=== PATIENT | male | born 1990 ===

== ENCOUNTER 2020-09-26 01:01 | Emergency (ER) | payer BC, OTHER ==
--- NOTE | 2020-09-26 01:38 | EDM.PDOC ---
ED HPI GENERAL MEDICAL PROBLEM - General Chief Complaint: Upper Extremity Injury/Pain Stated Complaint: left thumb pain/numbness post injury Time Seen by Provider: 09/26/20 01:13 Source of Information: Reports: Patient History Limitations: Reports: No Limitations - History of Present Illness INITIAL COMMENTS - FREE TEXT/NARRATIVE: Pt injured left thumb at work last week Was seen at [facility] and told it was fractured Was back at work tonight and has increased pain and wanted seen Is not an acute or emergent situation Was not wearing splint Duration: Day(s):, Getting Worse Location: Reports: Upper Extremity, Left Quality: Reports: Throbbing Severity: Moderate Context: Reports: Trauma left thumb/arm Pain Score (Numeric/FACES): 10 - Related Data Allergies Allergy/AdvReac Type Severity Reaction Status Date / Time No Known Allergies Allergy Verified 09/26/20 01:03 Home Meds: Home Meds . [No Known Home Meds] 09/26/20 [History] Review of Systems - Review of Systems Review Of Systems: See Below Musculoskeletal: Reports: Other (Left thumb pain and swelling) ED EXAM, GENERAL - Physical Exam Exam: See Below Exam Limited By: No Limitations General Appearance: Alert, WD/WN, Mild Distress Extremities: Joint Swelling, Limited Range of Motion, Other (Left thumb with increased swelling and ecchymosis Hematoma under nail Limited ROM due to pain and swelling Neurovascular intact) Course - Vital Signs Last Recorded V/S: Last Vital Signs Temp 98.3 F 09/26/20 01:04 Pulse 53 L 09/26/20 01:04 Resp 16 09/26/20 01:04 BP 136/71 09/26/20 01:04 Pulse Ox 99 09/26/20 01:04 - Orders/Labs/Meds Orders: Active Orders 24 hr Category Date Time Status Fingers Thumb Lt FA [CR] Stat Exams 09/26/20 01:18 Ordered - Re-Assessments/Exams Free Text/Narrative Re-Assessment/Exam: 09/26/20 01:38 Xray: Fracture of distal phalanges Splint placed per nursing Departure - Departure Time of Disposition: 01:45 Disposition: Home, Self-Care 01 Clinical Impression: Thumb fracture Qualifiers: Encounter type: initial encounter Fracture type: closed Phalanx: distal Fracture alignment: nondisplaced Laterality: left Qualified Code(s): S62.525A - Nondisplaced fracture of distal phalanx of left thumb, initial encounter for closed fracture - Discharge Information *PRESCRIPTION DRUG MONITORING PROGRAM REVIEWED*: Not Applicable *COPY OF PRESCRIPTION DRUG MONITORING REPORT IN PATIENT GIANNA: Not Applicable Instructions: Thumb Fracture Additional Instructions: Follow up in clinic Wear splint Rx Tylenol #3 One pill every 6 hours for pain Sepsis Event Note (ED) - Evaluation Sepsis Screening Result: No Definite Risk - Focused Exam Vital Signs: Vital Signs Temp Pulse Resp BP Pulse Ox 09/26/20 01:04 98.3 F 53 L 16 136/71 99 - My Orders Last 24 Hours: My Active Orders 09/26/20 01:18 Fingers Thumb Lt FA [CR] Stat - Assessment/Plan Last 24 Hours: My Active Orders 09/26/20 01:18 Fingers Thumb Lt FA [CR] Stat
== END 2020-09-26 02:20 | disposition home or self-care (01) ==
LOC: LL.ED 01:01
DX: S62.525A Nondisplaced fracture of distal phalanx of left thumb, initial encounter for closed fracture (principal); X58.XXXA Exposure to other specified factors, initial encounter; Y92.89 Other specified places as the place of occurrence of the external cause; Y99.0 Civilian activity done for income or pay
CPT/HCPCS: 73140-FA; 99283